=== PATIENT | male | born 1970 | race Caucasian/White ===

== ENCOUNTER → 2021-12-16 | Outpatient (CLI) | payer MEDICAID ==
[~2021-12-16] MED LIST: BUTA1CAP39 PO; GABA-490 PO; LISI1TAB8 PO; OXYC-465 PO; PRAV10TA PO; PRED10TA PO; TIZA4CAP PO; TOPI100T PO
[2021-12-16 10:55] LABS: BASOPHILS # (AUTO) 0.1 10^3/uL (0.0-0.1); BASOPHILS % (AUTO) 1 % (0-10); EOSINOPHILS # (AUTO) 0.2 10^3/uL (0.0-0.3); EOSINOPHILS % (AUTO) 3 % (0-10); HEMATOCRIT 44 % (40-54); HEMOGLOBIN 15.1 g/dL (13.3-17.7); LYMPHOCYTES % (AUTO) 51 % (12-44); MEAN CORPUSCULAR HEMOGLOBIN 34 pg (25-34); MEAN CORPUSCULAR HGB CONC 34 g/dL (32-36); MEAN CORPUSCULAR VOLUME 99 fL (80-99); MEAN PLATELET VOLUME 9.5 fL (9.0-12.2); MONOCYTES # (AUTO) 0.7 10^3/uL (0.0-1.0); MONOCYTES % (AUTO) 11 % (0-12); NEUTROPHILS % (AUTO) 34 % (42-75); PLATELET COUNT 189 10^3/uL (130-400); WHITE BLOOD COUNT 5.8 10^3/uL (4.3-11.0)
--- NOTE | 2021-12-16 11:14 | Diagnostic Imaging Report ---
INDICATION: Irregular heartbeat. TIME OF EXAM: 11:02 AM No prior studies are available for comparison. FINDINGS: The heart size is normal. The pulmonary vascularity is unremarkable. The lungs are clear. No infiltrate, effusion or pneumothorax is detected. IMPRESSION: No acute cardiopulmonary process is detected. Dictated by: Dictated on workstation # [id number]
[2021-12-16 11:18] LABS: ALBUMIN 4.1 GM/DL (3.2-4.5); BILIRUBIN,TOTAL 0.6 MG/DL (0.1-1.0); CALCIUM 9.3 MG/DL (8.5-10.1); CREATININE SERUM 0.81 MG/DL (0.60-1.30); TOTAL PROTEIN 7.4 GM/DL (6.4-8.2)
== END ==
LOC: CARD 10:41
PROVIDERS: ATTEND Nurse Practitioner Family
DX: R00.8 Other abnormalities of heart beat (principal)
CPT/HCPCS: 36415; 71045; 80053; 80061; 83735; 84439; 84443; 85025; 93005

== ENCOUNTER → 2021-12-25 | Outpatient (CLI) | payer MEDICAID ==
--- NOTE | 2021-12-28 10:51 | Holter Monitor ---
HOLTER MONITOR DATE OF PROCEDURE: 12/25/2021. INDICATION: Irregular heartbeat. PROCEDURE: A 24-hour Holter monitor was obtained for a total of 24 hours. The study quality is adequate. RESULTS: 1. Baseline sinus rhythm with an average heart rate of 94 bpm, ranging from 55- 164 beats per minute while in sinus rhythm. 2. There were rare (42), isolated premature supraventricular complexes and 1 supraventricular couplet. 3. There were occasional (311), isolated premature ventricular complexes, 1 ventricular couplet and one 5 beat run of wide-complex tachycardia at a heart rate of 182 bpm that may represent nonsustained ventricular tachycardia. 4. There were no pauses exceeding 2 seconds in duration. 5. There was no evidence of atrial fibrillation. 6. The patient noted in the patient diary that he had no cardiac symptoms during the test. IMPRESSION: 1. This is a 24-hour Holter monitor report. 2. Baseline sinus rhythm with an average heart rate of 94 bpm, ranging from 55- 164 bpm while in sinus rhythm with rare supraventricular ectopy as isolated and couplet beats and occasional ventricular ectopy as isolated and couplet beats as well as one 5 beat run of probable ventricular tachycardia at a heart rate of 182 bpm. 3. The patient noted in the patient diary that he had no cardiac symptoms during the test. Certain portions of this document may have been dictated utilizing voice recognition technology. Inherent to this technology, typographical and grammatical errors may exist. As much as I am diligent to identify and correct these mistakes, some errors may remain in the document. JUVENCIO MCFARLAND JR, MD Dec 28, 2021 10:51
== END ==
LOC: CARD 09:00
PROVIDERS: ATTEND Internal Medicine Cardiovascular Disease
DX: I51.7 Cardiomegaly (principal)
CPT/HCPCS: 93225; 93226; 93306

== ENCOUNTER 2022-01-08 07:38 | Day surgery (SDC) | payer MEDICAID ==
[2022-01-08] VITALS (10 sets, daily range): BP systolic 114–131; BP diastolic 77–87
[~2022-01-08] VITALS: Ht 180.3 cm; Wt 95.3 kg
[2022-01-08] MEDS ORDERED: NS IV 1000 ML 1,000 ML ONE (07:54)
[2022-01-08] MEDS ORDERED: HEParin (CATH LAB) 2,000 ML IV ONE (07:54)
[2022-01-08] MEDS ORDERED: LIDOCAINE 1% INJ 20 ML VIAL ONE (07:54)
[2022-01-08] MEDS ORDERED: ASPIRIN 81 MG CHEW (CHILDREN'S ASA) PO ONE (08:00)
[2022-01-08] MEDS ORDERED: CATHETER FLUSH 10 ML SYR IV PRN (08:00)
[2022-01-08] MEDS ORDERED: NS IV 1000 ML 1,000 ML IV ONE (08:00)
--- NOTE | 2022-01-08 08:28 | Pre-Op Note & Conscious Sedat ---
Pre-Operative Progress Note Date of Available H&P: Jan 05, 2022 Date H&P Reviewed: Jan 08, 2022 Time H&P Reviewed: 08:27 History & Physical: H&P Reviewed, Patient Examed, No changes noted Pre-Op Diagnosis: Ventricular tachycardia Conscious Sedation Pre-Proced ASA Score 2 For ASA 3 and 4: Consider anesthesia and medical clearance. Also, for patients with a history of failed moderate sedation consider anesthesia. Airway Lungs Heart ASA score ASA 1: a normal healthy patient ASA 2: a patient with a mild systemic disease (mid diabetes, controlled hypertension, obesity ASA 3: a patient with a severe systemic disease that limits activity (angina, COPD, prior Myocardial infarction) ASA 4: a patient with an incapacitating disease that is a constant threat to life (CHF, renal failure) ASA 5: a moribund patient not expected to survive 24 hrs. (ruptured aneurysm) ASA 6: a declared brain- patient whose organs are being harvested. For emergent operations, add the letter E after the classification Mallampati Classification Grade 2 Sedation Plan Analgesia, Amnesia, Plan communicated to team members, Discussed options with patient/fam, Discussed risks with patient/fam The patient is an appropriate candidate to undergo the planned procedure, sedation, and anesthesia. The patient immediately re-assessed prior to indication. JUVENCIO MCFARLAND JR, MD Jan 08, 2022 08:28
[2022-01-08] MEDS ORDERED: ASPIRIN 81 MG CHEW (CHILDREN'S ASA) ONE (08:31)
[2022-01-08] MEDS ORDERED: GABA-486 PO (08:53)
[2022-01-08] MEDS ORDERED: RT-ALBUINH IH (08:53)
[2022-01-08] MEDS ORDERED: HYDR-3458 PO (08:53)
[2022-01-08] MEDS ORDERED: CARV3.122 PO (08:53)
[2022-01-08] MEDS ORDERED: MONT10TA21 PO (08:53)
[2022-01-08] MEDS ORDERED: DIAZ10TA PO (08:53)
[2022-01-08] MEDS ORDERED: BUDE10.2 IH (08:53)
[2022-01-08] MEDS ORDERED: FURO20TA4 PO (08:53)
[2022-01-08] MEDS ORDERED: MIDAZOLAM 5 MG/5 ML (VERSED) VIAL ONE (08:58)
[2022-01-08] MEDS ORDERED: VERAPAMIL 5 MG/2 ML (CALAN) VIAL IV ONE (08:58)
[2022-01-08] MEDS ORDERED: HEParin 1000 UNIT/ML (10ML VIAL) FOR BOLUS ONE (08:58)
[2022-01-08] MEDS ORDERED: fentaNYL INJ 100 MCG/2 ML AMP ONE (08:58)
[2022-01-08] MEDS ORDERED: NITRO DRIP 25000 MCG/D5W 250 ML IV ONE (08:59)
--- NOTE | 2022-01-08 09:54 | Cardiac Cath Report ---
CARDIAC CATHETERIZATION DATE OF PROCEDURE: 01/08/2022 INDICATION: Ventricular tachycardia. HISTORY: The patient is a 51 year old male with no known history of coronary artery disease. I had seen him in the office for an evaluation of an irregular heartbeat and had him undergo a Holter monitor that showed nonsustained ventricular tachycardia. He has been taking beta-arslan. He is now referred for further evaluation with a cardiac catheterization. PROCEDURES PERFORMED: 1. Left heart catheterization with hemodynamic measurements. 2. Diagnostic [place] coronary angiography. PROCEDURE DESCRIPTION: After informed consent and in the fasting state, left heart catheterization was performed through the right radial artery utilizing a 6 [place] system by percutaneous approach. Standard 5 [place] Demetrius catheters were utilized for the diagnostic portion of the procedure. All catheters were exchanged over a guidewire. Following the procedure, a vascular band was applied to the radial artery access site and the sheath was removed with good hemostasis. RESULTS: HEMODYNAMICS: The aortic pressure was 104/73 mmHg. The left ventricular pressure was 121/0 mmHg with a left ventricular end-diastolic pressure of 15 mmHg. There was no significant pressure gradient upon pullback across aortic valve. CORONARY ANGIOGRAPHY: Left main coronary artery: Short and free of significant disease. Left anterior descending coronary artery: There was a smooth 30% stenosis in the mid portion of the vessel just distal to the takeoff of a large first diagonal branch with ROSALINDA-3 flow. Left circumflex coronary artery: Free of significant disease. Right coronary artery: Dominant and free of significant disease. IMPRESSION: 1. Mildly elevated left ventricular end-diastolic pressure. 2. Mild single-vessel coronary artery disease involving the midportion of the left anterior descending coronary artery. 3. The patient is known to have normal left ventricular systolic function with an estimated ejection fraction of 55-60% by echocardiogram that was obtained on 12/25/2021. Certain portions of this document may have been dictated utilizing voice recognition technology. Inherent to this technology, typographical and grammatical errors may exist. As much as I am diligent to identify and correct these mistakes, some errors may remain in the document. JUVENCIO MCFARLAND JR, MD Jan 08, 2022 09:54
[2022-01-08] MEDS ORDERED: NS IV 1000 ML 300 ML IV SCH (10:00)
[2022-01-08] MEDS ORDERED: ROSU20TA32 PO (12:08)
[2022-01-08] MEDS ORDERED: ROSUVASTATIN 20 MG (CRESTOR) TABLET PO SCH (21:00)
== END 2022-01-08 13:05 | disposition home or self-care (01) ==
LOC: CATH 07:38 → SDC 10:18 → CATH 13:05
PROVIDERS: ATTEND Internal Medicine Cardiovascular Disease
DX: I25.10 Atherosclerotic heart disease of native coronary artery without angina pectoris (principal); I47.2 Ventricular tachycardia; I10 Essential (primary) hypertension; E78.2 Mixed hyperlipidemia; J44.9 Chronic obstructive pulmonary disease, unspecified; E66.3 Overweight; I71.2 Thoracic aortic aneurysm, without rupture; F17.210 Nicotine dependence, cigarettes, uncomplicated; Z79.51 Long term (current) use of inhaled steroids; Z79.899 Other long term (current) drug therapy
CPT/HCPCS: 87081; 93458; C1894

== ENCOUNTER → 2022-03-06 | Outpatient (CLI) | payer MEDICAID ==
[~2022-03-06] MED LIST changes: +BUDE10.2 IH; +CARV3.122 PO; +DIAZ10TA PO; +FURO20TA4 PO; +GABA-486 PO; +HYDR-3458 PO; +MONT10TA21 PO; +ROSU20TA32 PO; +RT-ALBUINH IH
[2022-03-06 09:40] LABS: ALBUMIN 4.4 GM/DL (3.2-4.5)
[2022-03-06 09:41] LABS: CALCIUM 9.4 MG/DL (8.5-10.1)
[2022-03-06 09:44] LABS: BILIRUBIN,TOTAL 0.8 MG/DL (0.1-1.0)
[2022-03-06 09:46] LABS: CREATININE SERUM 0.82 MG/DL (0.60-1.30)
== END ==
LOC: RAD 08:34
PROVIDERS: ATTEND Urology
DX: I25.10 Atherosclerotic heart disease of native coronary artery without angina pectoris (principal); I47.2 Ventricular tachycardia; I71.2 Thoracic aortic aneurysm, without rupture; I10 Essential (primary) hypertension; E78.2 Mixed hyperlipidemia; J44.9 Chronic obstructive pulmonary disease, unspecified; E66.3 Overweight; F17.210 Nicotine dependence, cigarettes, uncomplicated
CPT/HCPCS: 36415; 80053; 80061

== ENCOUNTER → 2022-08-31 | Outpatient (CLI) | payer MEDICAID ==
[~2022-08-31] MED LIST changes: +ALBU8.5H6 IH; -RT-ALBUINH IH; +RT-ALBUTEROL SULF 2.5 MG/3 ML PRE-MIX VIAL INH ONE
== END ==
LOC: RT 12:12
PROVIDERS: ATTEND Pediatrics
DX: J44.9 Chronic obstructive pulmonary disease, unspecified (principal)
CPT/HCPCS: 94060; 94726; 94729

== ENCOUNTER → 2022-10-06 | Outpatient (CLI) | payer MEDICAID ==
[~2022-10-06] MED LIST changes: +MONT-47 PO; -MONT10TA21 PO; -RT-ALBUTEROL SULF 2.5 MG/3 ML PRE-MIX VIAL INH ONE
--- NOTE | 2022-10-06 19:51 | Diagnostic Imaging Report ---
CT Lung Screening INDICATION: 75 pack year smoking history, current smoker for baseline. Low-dose CT screening. TECHNIQUE: Noncontrast, low-dose CT imaging performed according to the lung cancer screening protocol. Auto Exposure Controls were utilize during the CT exam to meet ALARA standards for radiation dose reduction. COMPARISON:Baseline FINDINGS:No suspicious lung mass or pulmonary nodule. There is trace juxta fissural atelectasis in the left lung base. No consolidating pneumonia or edema. No thoracic adenopathy or effusion. No aneurysm. There is coronary artery atherosclerotic vascular calcifications and a tiny hiatal hernia with the visible upper abdomen nonacute and no bony or chest wall pathology. IMPRESSION: No evidence of lung cancer. Continued annual low-dose CT screening follow-up recommended. LUNG-RADS CATEGORY: Category 1 MODIFIER: None OTHER SIGNIFICANT FINDINGS: None Dictated by: Dictated on workstation # [id number]
== END ==
LOC: RAD 13:39
PROVIDERS: ATTEND Pediatrics
DX: Z12.2 Encounter for screening for malignant neoplasm of respiratory organs (principal); F17.218 Nicotine dependence, cigarettes, with other nicotine-induced disorders
CPT/HCPCS: 71271